=== PATIENT | female | born 1970 | race Caucasian/White ===

== ENCOUNTER 2017-09-07 08:53 | Emergency (ER) | payer BC ==
[~2017-09-07] VITALS: Ht 182.9 cm; Wt 74.8 kg
[2017-09-07 09:45] LABS: Calcium, Ionized (POC) 1.21 mmol/L (1.10-1.46); Chloride (POC) 103 mmol/L (98-108); Creatinine (POC) 0.7 mg/dL (0.6-1.0); Glucose (ISTAT POC) 93 mg/dL (70-99); Hemoglobin (POC) 12.6 g/dL (12.0-16.0); Potassium (POC) 3.7 mmol/L (3.5-5.5); Sodium (POC) 140 mmol/L (135-148); Total CO2 (POC) 24 mmol/L (21-32)
[2017-09-07] MEDS ORDERED: LORPSEER24 (09:47)
[2017-09-07] MEDS ORDERED: Zofran Odt4 MG PO (10:12)
== END 2017-09-07 10:30 | disposition home or self-care (01) ==
LOC: ER 08:53
PROVIDERS: Emergency Medicine
DX: R11.2 Nausea with vomiting, unspecified (principal); R19.7 Diarrhea, unspecified
CPT/HCPCS: 36415; 80047; 81000; 81025; 85014; 99283

== ENCOUNTER → 2018-07-20 | Outpatient (CLI) | payer BC ==
[~2018-07-20] MED LIST: LORPSEER24; Zofran Odt4 MG PO
== END | disposition home or self-care (01) ==
LOC: PLD 15:41 → LAB SHORT 15:41
DX: N92.0 Excessive and frequent menstruation with regular cycle (principal)
CPT/HCPCS: 88305

== ENCOUNTER 2018-10-15 20:34 | Observation (INO) | payer BC ==
[~2018-10-15] VITALS: Ht 182.9 cm; Wt 82.3 kg
[2018-10-15] MEDS ORDERED: MISO200 PO (20:42)
[2018-10-15 21:07] LABS: Hematocrit 27.2 % (33.0-51.0); Hemoglobin 7.9 g/dL (11.5-16.0)
[2018-10-15 21:25] LABS: Alanine Aminotransfer (ALT/SGP 15 U/L (12-78); Albumin, Blood 3.2 g/dL (3.4-5.0); Albumin/Globulin Ratio 1.1 (0.8-1.8); Alk Phos 56 U/L (50-136); Anion Gap 5 mmol/L (6-16); Aspartate Aminotrans (AST/SGOT 12 U/L (12-37); Bilirubin, Total 0.3 mg/dL (0.1-1.0); Blood Urea Nitrogen 16 mg/dL (8-24); CO2, Blood 27 mmol/L (21-32); Calcium, Blood 8.2 mg/dL (8.5-10.1); Chloride, Blood 104 mmol/L (98-108); Globulin, Blood 2.8 g/dL (2.2-4.0); Glomerular Filtration Rate >60 (60-); Glucose, Blood 147 mg/dL (70-99); Potassium, Blood 4.3 mmol/L (3.5-5.5); Sodium, Blood 136 mmol/L (136-145)
[2018-10-15] MEDS ORDERED: LEVSOD100 PO (21:27)
[2018-10-15] MEDS ORDERED: SERT25 PO (21:28)
[2018-10-15] MEDS ORDERED: THERA1 EACH PO (21:29)
[2018-10-15] MEDS ORDERED: FERSU300 PO (21:29)
[2018-10-15] MEDS ORDERED: PROGESTERONE CREAM TOP (21:30)
--- NOTE | 2018-10-16 00:12 | NUR ---
PCU ASSUMED CARE/ADMIT NOTE PATIENT ALERT AND ORIENTED X4. RESP E/U ON ROOM AIR. PATIENT DENIES ANY PAIN AT THIS TIME. SPOUSE AT BEDSIDE. PATIENT HAVING PERSISTANT VAGINAL BLEEDING NOTED - JERONIMO PADS PLACED. VSS. PATIENT REMAIN IN NSR IN THE 60'S PER DECKHAND SHRIMP BOAT. CONSULT FOR WONDERLY MADE BY ER MD JENNINGS. BLOOD INFUSING FROM ER. SECOND UNIT STARTED BY THIS RN BLOOD UNIT # [id number]. NO TRANSFUSION REACTION NOTED W/I 15 MINUTES. WILL CONTINUE TO MONITOR.
--- NOTE | 2018-10-16 00:54 | NUR ---
JERONIMO PAD CHANGED MILD AMOUNT OF VAGINAL BLOOD NOTED - CONTINUOUS THIN BLOOD TINGED FLUID NOTED TO DRAIN. APPROX 3 TABLE SPOONS. WILL CONTINUE TO MONITOR.
--- NOTE | 2018-10-16 02:56 | NUR ---
PATIENT UP TO BATHROOM PATIENT URINATED - 4 EXTRA LARGE CLOTS NOTED IN 'HAT' - ESTIMATED 300 CC OF BLOOD IN URINE. PATIENT STATES THAT SHE FEELS BETTER AFTER THE 2 UNITS OF BLOOD. WILL CONTINUE TO MONITOR.
[2018-10-16 04:32] LABS: BASOPHILS ABSOLUTE AUTO 0.05 K/mm3 (0.00-0.23); BASOPHILS PERCENT AUTO 0 % (0-2); EOSINOPHILS ABSOLUTE AUTO 0.02 K/mm3 (0.00-0.68); EOSINOPHILS PERCENT AUTO 0 % (0-6); Hematocrit 27.1 % (33.0-51.0); Hemoglobin 8.2 g/dL (11.5-16.0); IMMATURE GRAN ABSOLUTE AUTO 0.18 K/mm3 (0.00-0.10); IMMATURE GRAN PERCENT AUTO 1 % (0-1); LYMPHOCYTES ABSOLUTE AUTO 1.45 K/mm3 (0.84-5.20); LYMPHOCYTES PERCENT AUTO 10 % (21-46); MONOCYTES ABSOLUTE AUTO 0.74 K/mm3 (0.16-1.47); MONOCYTES PERCENT AUTO 5 % (4-13); Mean Corpuscular HGB Conc 30.3 g/dL (31.5-36.5); Mean Platelet Volume 9.9 fL (9.1-12.4); NEUTROPHILS ABSOLUTE AUTO 11.44 K/mm3 (1.96-9.15); NEUTROPHILS PERCENT AUTO 83 % (41-73); Platelet Count 237 K/mm3 (150-400); RDW Coefficient Variation 19.9 % (11.7-14.2); RDW Standard Deviation 56.8 fL (35.1-46.3); Red Blood Cell Count 3.42 M/mm3 (3.80-5.20); White Blood Cell Count 13.88 K/mm3 (4.00-11.30)
[2018-10-16 04:33] LABS: Mean Corpuscular Volume 79 fL (80-100)
--- NOTE | 2018-10-16 05:32 | NUR ---
PCU NOC SHIFT SUMMARY PATIENT ALERT AND ORIENTED X4. CONTINUED VAGINAL BLEEDING NOTED. PATIENT GIVEN 2 UNIT PRBC. PATIENT UP TO BATHROOM - LARGE CLOTS NOTED - MD WONDERLY NOTIFIED OF THAT AND CONTINUED BLEEDING C/ LAB RESULTS. ORDERS GIVEN. PATIENT REMAINS NSR IN THE 60'S T/O SHIFT ON ROOM AIR VSS. REPORTED OFF TO [facility] ROSE.
--- NOTE | 2018-10-16 05:37 | NUR ---
Handoff report received from Ingrid Douglas RN. The pt was assisted to the bathroom to void. Urine is discolored from presumably vaginal bleeding, ongoing, bright red. She was able to ambulate to the bathroom, denying and without display of symptoms of dizzyness, lightheadedness, and dyspnea. Blood transfusion started, now 3rd of 3 which have been ordered. Her is in the room lying down on the window bench.
--- NOTE | 2018-10-16 05:49 | NUR ---
First 15 minutes of transfusion completed, and the pt denies any fever, chills, dyspnea or pain. She is lying in bed, appears comfortable and without any expressed discomfort or needs at this time. Blood transfusion rate increased to 150 cc/hour; IV site is WNL.
--- NOTE | 2018-10-16 06:55 | NUR ---
Vaginal bleeding has slowed down to the point where her urine is no longer discolored. It is clear yellow. Kierra states that she is not having any more spotting since the last hour, either. Ambulatory to the bathroom without difficulty.
[2018-10-16 08:13] LABS: Hematocrit 28.1 % (33.0-51.0); Hemoglobin 8.9 g/dL (11.5-16.0)
--- NOTE | 2018-10-16 10:45 | NUR ---
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 States NPO. Denies implants, denies allergies, denies hearing aides, glasses, dentures. New IV started by Alley ROSE, 18g RFA. Doctor Wonderly has seen patient. Denies questions. Lactated ringers started per anesthesia orders, TKO."
--- NOTE | 2018-10-16 11:11 | NUR ---
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 He gave 2 mg of Versed IV and wasted the other 3 mg. Documented in Pyxis. Patient taken to OR."
--- NOTE | 2018-10-16 11:38 | NUR ---
PT OFF FLOOR IN SURGERY FOR HYSTERECTOMY
--- NOTE | 2018-10-16 13:45 | NUR ---
10/16/18 1345 Abril Vital PATIENT RECIEVED LATOYA BLOCK FROM DR. WILLS AFTER PROCEDURE.
--- NOTE | 2018-10-16 14:21 | NUR ---
PT TO GO TO ROOM 232 POST SURGERY. ELIEZER YAO MOVE PATIENTS BELONGINGS TO THAT ROOM.
--- NOTE | 2018-10-16 15:58 | NUR ---
SHIFT SUMMARY PT A&OX4, VSS, S/P LAVH W/3 LAP SITES W/GAUZE/TAPE CDI, PERIPAD CDI. PAIN MANAGED PER EMAR. NAUSEA TX'D WITH ZOFRAN. WCTM.
[2018-10-16 18:41] LABS: BASOPHILS ABSOLUTE AUTO 0.03 K/mm3 (0.00-0.23); BASOPHILS PERCENT AUTO 0 % (0-2); EOSINOPHILS PERCENT AUTO 0 % (0-6); Hematocrit 26.8 % (33.0-51.0); Hemoglobin 8.3 g/dL (11.5-16.0); IMMATURE GRAN ABSOLUTE AUTO 0.26 K/mm3 (0.00-0.10); IMMATURE GRAN PERCENT AUTO 2 % (0-1); LYMPHOCYTES ABSOLUTE AUTO 0.62 K/mm3 (0.84-5.20); LYMPHOCYTES PERCENT AUTO 4 % (21-46); MONOCYTES ABSOLUTE AUTO 0.59 K/mm3 (0.16-1.47); MONOCYTES PERCENT AUTO 4 % (4-13); Mean Corpuscular HGB 25.2 pg (26.0-34.0); Mean Corpuscular Volume 81 fL (80-100); Mean Platelet Volume 9.6 fL (9.1-12.4); NEUTROPHILS ABSOLUTE AUTO 14.02 K/mm3 (1.96-9.15); NEUTROPHILS PERCENT AUTO 90 % (41-73); Platelet Count 247 K/mm3 (150-400); RDW Coefficient Variation 20.5 % (11.7-14.2); RDW Standard Deviation 59.7 fL (35.1-46.3); White Blood Cell Count 15.52 K/mm3 (4.00-11.30)
--- NOTE | 2018-10-16 21:30 | NUR ---
WONDERLY IN TO SEE PT. LABS REVIEWED. CONT TX PLAN PER ORDERS.
[2018-10-17 04:25] LABS: BASOPHILS ABSOLUTE AUTO 0.02 K/mm3 (0.00-0.23); BASOPHILS PERCENT AUTO 0 % (0-2); EOSINOPHILS ABSOLUTE AUTO 0.02 K/mm3 (0.00-0.68); EOSINOPHILS PERCENT AUTO 0 % (0-6); Hematocrit 23.5 % (33.0-51.0); Hemoglobin 7.1 g/dL (11.5-16.0); IMMATURE GRAN ABSOLUTE AUTO 0.12 K/mm3 (0.00-0.10); IMMATURE GRAN PERCENT AUTO 1 % (0-1); LYMPHOCYTES ABSOLUTE AUTO 1.53 K/mm3 (0.84-5.20); LYMPHOCYTES PERCENT AUTO 14 % (21-46); MONOCYTES ABSOLUTE AUTO 0.78 K/mm3 (0.16-1.47); MONOCYTES PERCENT AUTO 7 % (4-13); Mean Corpuscular HGB 25.3 pg (26.0-34.0); Mean Corpuscular HGB Conc 30.2 g/dL (31.5-36.5); Mean Platelet Volume 9.8 fL (9.1-12.4); NEUTROPHILS ABSOLUTE AUTO 8.65 K/mm3 (1.96-9.15); NEUTROPHILS PERCENT AUTO 78 % (41-73); NRBC ABSOLUTE 0.02 K/mm3 (0.00-0.02); NRBC Auto 0.2 /100 WBC (0.0-0.2); Platelet Count 202 K/mm3 (150-400); RDW Coefficient Variation 21.2 % (11.7-14.2); RDW Standard Deviation 64.1 fL (35.1-46.3); Red Blood Cell Count 2.81 M/mm3 (3.80-5.20); White Blood Cell Count 11.12 K/mm3 (4.00-11.30)
[2018-10-17 04:32] LABS: Mean Corpuscular Volume 84 fL (80-100)
--- NOTE | 2018-10-17 05:58 | NUR ---
POD 1 S/P LAVH. PT VSS T/O NIGHT. DRESSINGS CDI, PAIN MGD PER EMAR W/REP RELIEF. ONLY SCANT VAGINAL BLEEDING NOTED. PT MAICOL CLEAR LIQ W/FEW CRACKERS, DENIED N/V, REP PASSING SM AMT FLATUS. PLAN TO D/C AGUILERA THIS AM. IVF CONT PER ORDERS. PT USING CALL LIGHT FOR ASSISTANCE, WILL CONT TO MONITOR UNTIL REP GIVEN TO ONCOMING RN.
--- NOTE | 2018-10-17 16:55 | NUR ---
SUMMARY: NO ACUTE CHANGE THIS SHIFT. PT IS A/O, IS UP IN ROOM AND VOIDING. TOLERATING REG DIET, NO N/V, PASSING GAS. DR. HERRMANN SAW PT, ORDERED 1 UNIT PRBC'S, UNIT STARTED AT 1228 AND COMPLETED AT ABOUT 1508, PT TOLERATED WELL, DENIED ANY REACTION SYMPTOMS. PT HAD ELEVATED TEMP OF 100.1 BEFORE STARTING TRANSFUSION, TEMP DID NOT RISE DURING DURATION OF TRANSFUSION. K PAD REMOVED AND PT GIVEN IBUPROPHEN. TEMP 99.6 AT THIS TIME. PT REPORTS "FEELING BETTER". REPORTS "VERY SMALL AMT" VAGINAL BLEED. MEDICATED FOR PAIN PER EMAR. SURGICAL SITES WNL. PLAN TO REPEAT LABS IN AM AND POSSIBLE DC PER DR. HERRMANN. WILL CTM AND REPORT TO DAY RN.
[2018-10-18 04:08] LABS: BASOPHILS ABSOLUTE AUTO 0.03 K/mm3 (0.00-0.23); BASOPHILS PERCENT AUTO 0 % (0-2); EOSINOPHILS ABSOLUTE AUTO 0.11 K/mm3 (0.00-0.68); EOSINOPHILS PERCENT AUTO 2 % (0-6); Hematocrit 25.7 % (33.0-51.0); Hemoglobin 7.8 g/dL (11.5-16.0); IMMATURE GRAN ABSOLUTE AUTO 0.13 K/mm3 (0.00-0.10); IMMATURE GRAN PERCENT AUTO 2 % (0-1); LYMPHOCYTES ABSOLUTE AUTO 1.85 K/mm3 (0.84-5.20); LYMPHOCYTES PERCENT AUTO 26 % (21-46); MONOCYTES ABSOLUTE AUTO 0.81 K/mm3 (0.16-1.47); MONOCYTES PERCENT AUTO 12 % (4-13); Mean Corpuscular HGB 26.3 pg (26.0-34.0); Mean Corpuscular HGB Conc 30.4 g/dL (31.5-36.5); Mean Platelet Volume 9.9 fL (9.1-12.4); NEUTROPHILS ABSOLUTE AUTO 4.14 K/mm3 (1.96-9.15); NEUTROPHILS PERCENT AUTO 59 % (41-73); NRBC ABSOLUTE 0.02 K/mm3 (0.00-0.02); NRBC Auto 0.3 /100 WBC (0.0-0.2); Platelet Count 171 K/mm3 (150-400); RDW Coefficient Variation 21.2 % (11.7-14.2); RDW Standard Deviation 66.1 fL (35.1-46.3); Red Blood Cell Count 2.97 M/mm3 (3.80-5.20); White Blood Cell Count 7.07 K/mm3 (4.00-11.30)
[2018-10-18 04:12] LABS: Mean Corpuscular Volume 87 fL (80-100)
[2018-10-18 04:32] LABS: Percent Saturation 15.3 % (15.0-50.0)
--- NOTE | 2018-10-18 05:08 | NUR ---
POD 2 S/P LAVH. PT VSS T/O NIGHT. DRESSINGS CDI, W/ONLY SCANT VAGINAL BLEEDING. PT UP INDEP IN ROOM, DENIES DIZZINESS WHEN UP. PAIN MGD PER EMAR. PT MAICOL REG PO, NO C/V NV, REP +FLATUS, IS VOIDING URINE W/O DIFFICULTY. PT USING CALL LIGHT FOR ASSISTANCE, WILL CONT TO MONITOR UNTIL REP GIVEN TO DAY RN.
[2018-10-18] MEDS ORDERED: Colace100 MG PO (09:31)
[2018-10-18] MEDS ORDERED: IBUP800 PO (09:32)
[2018-10-18] MEDS ORDERED: Percocet 5-3251 EACH PO (09:33)
--- NOTE | 2018-10-18 12:44 | NUR ---
DISCHARGE PT DISCHARGED HOME FROM UNIT AT APROX [id number]. PT GIVEN WRITTEN AND VERBAL DISCHARGE INSTRUCTIONS AND VERBALIZED UNDERSTANDING OF THESE INSTRUCTIONS. IV REMOVED, PT TOLERATED WELL. WHEELCHAIR TO CAR.
== END 2018-10-18 12:29 | disposition home or self-care (01) ==
LOC: ER 20:34 → SURS 22:01 → PCU 22:01 → SURS 10-16 14:35
PROVIDERS: Emergency Medicine; Physician Assistant; ADMIT Obstetrics & Gynecology
PROC: 0UT7FZZ Resection of Bilateral Fallopian Tubes, Via Natural or Artificial Opening With Percutaneous Endoscopic Assistance (ICD-10-PCS; 2018-10-16)
PROC: 0UT9FZZ Resection of Uterus, Via Natural or Artificial Opening With Percutaneous Endoscopic Assistance (ICD-10-PCS; principal; 2018-10-16 07:00)
DX: N72 Inflammatory disease of cervix uteri (principal); N87.9 Dysplasia of cervix uteri, unspecified; D62 Acute posthemorrhagic anemia; Z79.899 Other long term (current) drug therapy
CPT/HCPCS: 36415; 36430; 76856; 80053; 82728; 83540; 83550; 85014; 85018; 85025; 86850; 86900; 86901; 86923; 88307; 96365; 96366; 96374; 96375; 96376; 99285-25; G0378; J0690; J1100; J1885; J2250; J2370; J2405; J2704; J3010; J7030; J7120; P9016

== ENCOUNTER → 2018-11-26 | Outpatient (CLI) | payer BC ==
[~2018-11-26] MED LIST changes: +Colace100 MG PO; +FERSU300 PO; +IBUP800 PO; +LEVSOD100 PO; +MISO200 PO; +PROGESTERONE CREAM TOP; +Percocet 5-3251 EACH PO; +SERT25 PO; +THERA1 EACH PO
[2018-11-27 15:34] LABS: Candida species (DNA Probe) Negative (NEGATIVE); G. vaginalis (DNA Probe) Positive (NEGATIVE); T. vaginalis (DNA Probe) Negative (NEGATIVE)
== END | disposition home or self-care (01) ==
LOC: LAB 13:25 → LAB SHORT 13:25
PROVIDERS: Obstetrics & Gynecology
DX: N76.0 Acute vaginitis (principal)
CPT/HCPCS: 87480; 87510; 87660

== ENCOUNTER → 2019-05-06 | Outpatient (CLI) | payer BC ==
[2019-05-06 08:46] LABS: BASOPHILS ABSOLUTE AUTO 0.01 K/mm3 (0.00-0.23); BASOPHILS PERCENT AUTO 0 % (0-2); EOSINOPHILS ABSOLUTE AUTO 0.06 K/mm3 (0.00-0.68); EOSINOPHILS PERCENT AUTO 2 % (0-6); Hematocrit 44.1 % (33.0-51.0); Hemoglobin 14.9 g/dL (11.5-16.0); IMMATURE GRAN ABSOLUTE AUTO 0.01 K/mm3 (0.00-0.10); IMMATURE GRAN PERCENT AUTO 0 % (0-1); LYMPHOCYTES ABSOLUTE AUTO 0.82 K/mm3 (0.84-5.20); LYMPHOCYTES PERCENT AUTO 30 % (21-46); MONOCYTES ABSOLUTE AUTO 0.42 K/mm3 (0.16-1.47); MONOCYTES PERCENT AUTO 15 % (4-13); Mean Corpuscular HGB 30.3 pg (26.0-34.0); Mean Corpuscular HGB Conc 33.8 g/dL (31.5-36.5); Mean Corpuscular Volume 90 fL (80-100); NEUTROPHILS ABSOLUTE AUTO 1.41 K/mm3 (1.96-9.15); NEUTROPHILS PERCENT AUTO 52 % (41-73); Platelet Count 163 K/mm3 (150-400); RDW Coefficient Variation 11.9 % (11.7-14.2); RDW Standard Deviation 38.5 fL (35.1-46.3); Red Blood Cell Count 4.91 M/mm3 (3.80-5.20); White Blood Cell Count 2.73 K/mm3 (4.00-11.30)
[2019-05-06 09:46] LABS: Alanine Aminotransfer (ALT/SGP 30 U/L (12-78); Albumin, Blood 3.7 g/dL (3.4-5.0); Alk Phos 71 U/L (50-136); Anion Gap 5 mmol/L (6-16); Aspartate Aminotrans (AST/SGOT 19 U/L (12-37); Bilirubin, Total 0.5 mg/dL (0.1-1.0); Blood Urea Nitrogen 13 mg/dL (8-24); Bun/Creatinine Ratio 18.2 (12.0-20.0); CO2, Blood 30 mmol/L (21-32); Calcium, Blood 8.4 mg/dL (8.5-10.1); Chloride, Blood 106 mmol/L (98-108); Creatinine, Blood 0.71 mg/dL (0.40-1.00); Globulin, Blood 3.7 g/dL (2.2-4.0); Glomerular Filtration Rate >60 (60-); Glucose, Blood 95 mg/dL (70-99); Potassium, Blood 4.1 mmol/L (3.5-5.5); Sodium, Blood 141 mmol/L (136-145); Total Protein, Blood 7.4 g/dL (6.4-8.2)
[2019-05-07 09:07] LABS: EBV AB VCA, IGG >600.0 U/mL (0.0-17.9); EBV AB VCA, IGM <36.0 U/mL (0.0-35.9); EBV NUCLEAR ANTIGEN AB, IGG 76.7 U/mL (0.0-17.9)
== END | disposition home or self-care (01) ==
LOC: LAB SHORT 08:40 → LAB EV 08:40
PROVIDERS: Physician Assistant
DX: D72.819 Decreased white blood cell count, unspecified (principal); R53.83 Other fatigue
CPT/HCPCS: 80053; 84443; 85025; 86308

== ENCOUNTER → 2021-05-30 | Outpatient (CLI) | payer BC | END | disposition home or self-care (01) | LOC: LAB SHORT 15:36 → PLD 15:36 | DX: R23.4 Changes in skin texture (principal) | CPT/HCPCS: 88305 ==

== ENCOUNTER → 2023-09-21 | Outpatient (CLI) | payer BC | LOC: LAB SHORT 14:03 → LAB 14:03 | DX: T14.8XXA Other injury of unspecified body region, initial encounter (principal) | CPT/HCPCS: 87070; 87075; 87205 ==

== ENCOUNTER 2023-09-23 08:09 | Emergency (ER) | payer BC ==
[~2023-09-23] VITALS: Ht 182.9 cm; Wt 81.7 kg
[2023-09-23] MEDS ORDERED: Tranexamic Acid 100 ML IV ONE (11:00)
[2023-09-23] MEDS ORDERED: Phenylephrine 0.5% Nasal Spray/Drops 15 ML ONE ×2 (11:00→11:10)
[2023-09-23] MEDS ORDERED: Ondansetron HCl 2 MG / ML 2ML Vial IV ONE (12:35)
[2023-09-23] MEDS ORDERED: Morphine Sulfate 4 MG/1 ML Injection IV ONE (12:35)
[2023-09-23 13:11] LABS: BASOPHILS ABSOLUTE AUTO 0.05 K/mm3 (0.00-0.23); BASOPHILS PERCENT AUTO 1 % (0-2); EOSINOPHILS ABSOLUTE AUTO 0.28 K/mm3 (0.00-0.68); EOSINOPHILS PERCENT AUTO 3 % (0-6); Hematocrit 39.9 % (33.0-51.0); Hemoglobin 13.7 g/dL (11.5-16.0); IMMATURE GRAN ABSOLUTE AUTO 0.05 K/mm3 (0.00-0.10); IMMATURE GRAN PERCENT AUTO 1 % (0-1); LYMPHOCYTES ABSOLUTE AUTO 1.43 K/mm3 (0.84-5.20); LYMPHOCYTES PERCENT AUTO 17 % (21-46); MONOCYTES ABSOLUTE AUTO 0.58 K/mm3 (0.16-1.47); MONOCYTES PERCENT AUTO 7 % (4-13); Mean Corpuscular HGB 30.2 pg (26.0-34.0); Mean Corpuscular HGB Conc 34.3 g/dL (31.5-36.5); Mean Corpuscular Volume 88 fL (80-100); Mean Platelet Volume 8.8 fL (9.1-12.4); NEUTROPHILS ABSOLUTE AUTO 6.18 K/mm3 (1.96-9.15); NEUTROPHILS PERCENT AUTO 72 % (41-73); Platelet Count 286 K/mm3 (150-400); RDW Coefficient Variation 12.1 % (11.7-14.2); RDW Standard Deviation 39.1 fL (35.1-46.3); Red Blood Cell Count 4.53 M/mm3 (3.80-5.20); White Blood Cell Count 8.57 K/mm3 (4.00-11.30)
[2023-09-23 15:35] VITALS: BP 189/114
== END 2023-09-23 15:42 | disposition home or self-care (01) ==
LOC: ER 08:09
PROVIDERS: Emergency Medicine
DX: R04.0 Epistaxis (principal); Z79.899 Other long term (current) drug therapy
CPT/HCPCS: 30903; 85025; 96374-59; 96375-59; 99283-25; A9270; J2270; J2405

== ENCOUNTER 2023-10-12 02:03 | Day surgery (SDC) | payer BC ==
[2023-10-12] MEDS ORDERED: Lidocaine HCl 4% Cream 5 GM ONE (12:20)
== END 2023-10-12 04:41 | disposition home or self-care (01) ==
LOC: WOUND 02:03
DX: S91.001A Unspecified open wound, right ankle, initial encounter (principal); S80.11XA Contusion of right lower leg, initial encounter; I10 Essential (primary) hypertension; I73.9 Peripheral vascular disease, unspecified; I87.2 Venous insufficiency (chronic) (peripheral); X58.XXXA Exposure to other specified factors, initial encounter
CPT/HCPCS: A6213; A9270; G0463

== ENCOUNTER 2023-10-19 03:19 | Day surgery (SDC) | payer BC | END 2023-10-19 23:17 | disposition home or self-care (01) | LOC: WOUND 03:19 | DX: S91.001A Unspecified open wound, right ankle, initial encounter (principal); S80.11XA Contusion of right lower leg, initial encounter; I73.9 Peripheral vascular disease, unspecified; I87.2 Venous insufficiency (chronic) (peripheral); X58.XXXA Exposure to other specified factors, initial encounter | CPT/HCPCS: A6213 ==

== ENCOUNTER 2023-11-02 06:42 | Day surgery (SDC) | payer BC | END 2023-11-03 00:01 | disposition home or self-care (01) | LOC: WOUND 06:42 | DX: S80.11XA Contusion of right lower leg, initial encounter (principal); I73.9 Peripheral vascular disease, unspecified; I87.2 Venous insufficiency (chronic) (peripheral); X58.XXXA Exposure to other specified factors, initial encounter | CPT/HCPCS: G0463 ==

== ENCOUNTER → 2024-02-01 | Outpatient (CLI) | payer BC ==
[2024-02-08 13:52] LABS: OVA AND PARASITE,FECAL INTERP Negative (Negative)
== END ==
LOC: LAB 17:06 → LAB SHORT 17:06
PROVIDERS: Physician Assistant
DX: E55.9 Vitamin D deficiency, unspecified (principal); R53.83 Other fatigue
CPT/HCPCS: 87177; 87209

== ENCOUNTER → 2024-02-02 | Outpatient (CLI) | payer BC ==
[2024-02-08 13:52] LABS: OVA AND PARASITE,FECAL INTERP Negative (Negative)
== END ==
LOC: LAB SHORT 17:12 → LAB 17:12
PROVIDERS: Physician Assistant
DX: R53.83 Other fatigue (principal); E55.9 Vitamin D deficiency, unspecified
CPT/HCPCS: 87177; 87209

== ENCOUNTER → 2024-02-03 | Outpatient (CLI) | payer BC ==
[2024-02-08 20:14] LABS: OVA AND PARASITE,FECAL INTERP Negative (Negative)
== END ==
LOC: LAB 17:04 → LAB SHORT 17:04 → LAB FUT 02-01 17:20
PROVIDERS: Physician Assistant
DX: E55.9 Vitamin D deficiency, unspecified (principal); R53.83 Other fatigue
CPT/HCPCS: 87177; 87209